=== PATIENT | male | born 1990 | race Caucasian/White ===

== ENCOUNTER 2017-11-10 14:19 | Emergency (ER) | payer MEDICAID ==
[2017-11-10 16:20] VITALS: BP 130/72
--- NOTE | 2017-11-10 17:11 | UC ---
Lloyd Elam Tecjoon, scribed for Prabhu Granger MD on 11/10/17 at 1549 . Abdominal Pain Male HPI - HPI Summary HPI Summary: This patient is a 27 year old male presenting to [facility] with a chief complaint of lower abd pain since 2 days ago. Patient states the nausea and pain occurred mostly at night and has increased during the day. The pain is described as pressure and comes and goes. The pain is rated 1/10 in severity. Symptoms aggravated by nothing. Symptoms alleviated by nothing. Patient additionally reports nausea. Patient denies painful urination, fever, chills, diarrhea, black stools. - History of Current Complaint Chief Complaint: UCAbdominalPain Stated Complaint: ABDOMINAL PAIN Time Seen by Provider: 11/10/17 15:37 Hx Obtained From: Patient Onset/Duration: Gradual Onset, Lasting Days - 2, Still Present Timing: Constant Severity Currently: Mild Pain Intensity: 1 Pain Scale Used: 0-10 Numeric Location: Other - lower abd Radiates: No Character: Other - pressure Aggravating Factor(s): Nothing Alleviating Factor(s): Nothing Associated Signs And Symptoms: Positive: Negative - painful urination, fever, chills, diarrhea, black stools., Other - nausea - Allergies/Home Medications Allergies/Adverse Reactions: Allergies Allergy/AdvReac Type Severity Reaction Status Date / Time Cefaclor [From [facility]] Allergy Intermediate Hives Verified 11/10/17 14:59 PMH/Surg Hx/FS Hx/Imm Hx Previously Healthy: Yes Endocrine History: Other Other Endocrine History: negative: diabetes Respiratory History: Other Other Respiratory History: negative: COPD - Surgical History Surgical History: Yes Surgery Procedure, Year, and Place: Appendectomy age 12 - Social History Alcohol Use: Rare Substance Use Type: Marijuana Substance Use Comment - Amount & Last Used: Daily Smoking Status (MU): Light Every Day Tobacco Smoker Amount Used/How Often: 5-6cig/day - Immunization History Most Recent Influenza Vaccination: NOT UTD Most Recent Tetanus Shot: Unknown Review of Systems Constitutional: Negative - fever, chills Gastrointestinal: Negative - diarrhea, black stools, Abdominal Pain, Nausea All Other Systems Reviewed And Are Negative: Yes Physical Exam Triage Information Reviewed: Yes Vital Signs: Initial Vital Signs Temp 99.3 F 11/10/17 14:54 Pulse 83 11/10/17 14:54 Resp 18 11/10/17 14:54 BP 148/79 11/10/17 14:54 Pulse Ox 100 11/10/17 14:54 - Additional Comments General: well-appearing, no pain distress Skin: warm, color reflects adequate perfusion, dry Head: normal Eyes: EOMI, HENRIQUE ENT: normal Neck: supple, nontender Respiratory: CTA, breath sounds present Cardiovascular: RRR Abdomen: Mild tenderness to palpation in epigastrium, periumbilical. No lower abd pain, no rlq abd pain. Bowel: present Musculoskeletal: normal, strength/ROM intact Neurological: normal, sensory/motor intact, A&O x3 Psychological: affect/mood appropriate Abd Pain Male Course/Dx - Course Course Of Treatment: BP noted and advised to follow up with PCP. Medications reviewed. Allergies noted. HAS ALREADY HAD APPENDIX OUT, NO SIGNS OF OBSTRUCTION BY HX OR EXAM. NO FEVER. MILD TENDERNESS PERIUMBILICAL AND EPIGASTRIM; WILL RX OMEPRAZOLE. REPORTS SOME WHITE SPOTS IN STOOL, WILL SEND O & P. F/U PRM; GO TO ED IF WORSE. - Differential Dx/Clinical Impression Provider Diagnoses: ABDOMINAL PAIN Discharge - Discharge Plan Condition: Stable Disposition: HOME Prescriptions: Omeprazole CAP* [Prilosec CAP* 20 MG] 20 mg PO BID #30 cap.dr Patient Education Materials: Abdominal Pain (ED) Referrals: [facility] [facility]FERR[facility] [Outside] No Primary Care Phys,NOPCP [Primary Care Provider] - Additional Instructions: Your blood pressure was elevated during todays visit; please follow up with your primary care provider within a week for further evaluation. FOLLOW UP WITH YOUR DOCTOR. GO TO THE EMERGENCY DEPARTMENT FOR ANY WORSENING OF YOUR CONDITION; PAIN, FEVER , YOU FEEL ILL OR QUESTIONS OR CONCERNS. The documentation as recorded by the Lloyd denson Tecjoon accurately reflects the service I personally performed and the decisions made by me, Prabhu Granger MD.
== END 2017-11-10 17:14 | disposition home or self-care (01) ==
LOC: UCEAST 14:19
DX: R10.30 Lower abdominal pain, unspecified (principal); R11.0 Nausea; F17.210 Nicotine dependence, cigarettes, uncomplicated; R19.5 Other fecal abnormalities; Z88.1 Allergy status to other antibiotic agents
CPT/HCPCS: 81003; 87086; 99202; G0463

== ENCOUNTER 2019-05-26 15:25 | Emergency (ER) | payer SELFPAY ==
[2019-05-26 15:43] VITALS: BP 134/75
--- NOTE | 2019-05-26 15:50 | UC ---
Throat Pain/Nasal Tobin HPI - HPI Summary HPI Summary: sore throat started 4 days ago, body aches and fever or past 2 days. mild dry cough was in [place] 20 days ago - not ill at that time, no other close contacts with same symps. patient took an antibiotic for "lyme symptoms" 1 mo. ago- never tested, and fever and aches resolved has been using 400-600mg ibuprofen for fever which works but then wears off within 6 hours. - History of Current Complaint Chief Complaint: UCGeneralIllness Stated Complaint: FEVER, SORE THROAT Time Seen by Provider: 05/26/19 15:37 Hx Obtained From: Patient Onset/Duration: Gradual Onset Pain Intensity: 4 Cough: Nonproductive Associated Signs & Symptoms: Positive: Fever. Negative: Hoarseness, Sinus Discomfort, Vomiting - Allergies/Home Medications Allergies/Adverse Reactions: Allergies Allergy/AdvReac Type Severity Reaction Status Date / Time cefaclor [From [facility]] Allergy Intermediate Hives Verified 05/26/19 15:43 Home Medications: Home Medications Ibuprofen TAB* [Motrin TAB* 400 MG] 400 mg PO Q6HR 05/26/19 [History Confirmed 05/26/19] PMH/Surg Hx/FS Hx/Imm Hx Previously Healthy: Yes - Surgical History Surgical History: Yes Surgery Procedure, Year, and Place: Appendectomy age 12 - Social History Occupation: Employed Full-time Lives: With Family Alcohol Use: Rare Substance Use Type: None Substance Use Comment - Amount & Last Used: Daily Smoking Status (MU): Light Every Day Tobacco Smoker Amount Used/How Often: 5-6cig/day Cessation Counseling: Patient Advised to Stop - Immunization History Most Recent Influenza Vaccination: NOT UTD Most Recent Tetanus Shot: Unknown Review of Systems All Other Systems Reviewed And Are Negative: Yes Constitutional: Positive: Fever Skin: Positive: Negative. Negative: Rash Eyes: Positive: Negative ENT: Positive: Sore Throat. Negative: Ear Ache, Sinus Congestion, Sinus Pain/ Tenderness Respiratory: Positive: Cough. Negative: Shortness Of Breath Cardiovascular: Positive: Negative Neurological: Positive: Negative, Other - no neck pain. Negative: Headache Psychological: Positive: Negative Is Patient Immunocompromised?: No Physical Exam Triage Information Reviewed: Yes Appearance: Well-Appearing, No Pain Distress, Well-Nourished Vital Signs: Initial Vital Signs Temp 99.9 F 05/26/19 15:33 Pulse 73 05/26/19 15:33 Resp 12 05/26/19 15:33 BP 134/75 05/26/19 15:33 Pulse Ox 98 05/26/19 15:33 Vital Signs Reviewed: Yes Eyes: Positive: Conjunctiva Clear ENT: Positive: Pharynx normal. Negative: Nasal congestion, Tonsillar swelling, Tonsillar exudate, Sinus tenderness Neck exam: Normal Neck: Positive: Supple, Nontender, No Lymphadenopathy Respiratory Exam: Normal Respiratory: Positive: Lungs clear Cardiovascular Exam: Normal Cardiovascular: Positive: RRR Musculoskeletal Exam: Normal Musculoskeletal: Positive: Strength Intact, ROM Intact, No Edema Neurological Exam: Normal Neurological: Positive: Alert Psychological Exam: Normal Skin: Negative: Rashes Throat Pain/Nasal Course/Dx - Differential Dx/Diagnosis Differential Diagnosis/HQI/PQRI: Sinusitis, Tonsillitis, URI Provider Diagnosis: URI (upper respiratory infection) Discharge - Sign-Out/Discharge Documenting (check all that apply): Patient Departure All imaging exams completed and their final reports reviewed: No Studies - Discharge Plan Condition: Good Disposition: HOME Patient Education Materials: Upper Respiratory Infection (ED) Referrals: Kia Mckee, CHRIS [Primary Care Provider] - 2 Days (if not improving) Additional Instructions: drink plenty of fluids use ibuprofen 600-800mg every 6 hours and Tylenol 650mg every 4 hours to treat fever see primary care provider to discuss previous Lyme symptoms return here or to the ER if your symptoms worsen - Billing Disposition and Condition Condition: GOOD Disposition: Home - Attestation Statements Provider Attestation: I was available for consult. This patient was seen by the LEONELA. The patient was not presented to, seen by, or examined by me. -Kasey
== END 2019-05-26 16:26 | disposition home or self-care (01) ==
LOC: UCEAST 15:25
DX: J06.9 Acute upper respiratory infection, unspecified (principal); Z88.1 Allergy status to other antibiotic agents; F17.210 Nicotine dependence, cigarettes, uncomplicated
CPT/HCPCS: 87651; 99211; G0463